=== PATIENT | female | born 1990 | race Caucasian/White ===

== ENCOUNTER → 2016-12-06 | Outpatient (CLI) | payer BC | LOC: MW.CHOBGYN 09:15 | PROVIDERS: ATTEND Nurse Practitioner Women's Health | DX: E03.9 Hypothyroidism, unspecified (principal) | CPT/HCPCS: 36415; 84439; 84443 ==

== ENCOUNTER → 2017-01-03 | Outpatient (CLI) | payer BC | END | disposition home or self-care (01) | LOC: MW.CHOBGYN 09:00 | PROVIDERS: ATTEND Advanced Practice Midwife | DX: Z34.90 Encounter for supervision of normal pregnancy, unspecified, unspecified trimester (principal) | CPT/HCPCS: 87081 ==

== ENCOUNTER → 2017-01-24 | Outpatient (CLI) | payer BC | LOC: MW.CHOBGYN 15:56 | PROVIDERS: ATTEND Obstetrics & Gynecology | DX: Z34.90 Encounter for supervision of normal pregnancy, unspecified, unspecified trimester (principal) | CPT/HCPCS: 81003 ==

== ENCOUNTER 2017-01-31 09:37 | Inpatient (IN) | payer BC ==
[2017-01-31] MEDS ORDERED: Butorphanol 1 MG/ML SDV IVPUSH PRN (10:34)
[2017-01-31] MEDS ORDERED: Carboprost Tromethamine 250 MCG/1 ML Amp IM PRN (10:34)
[2017-01-31] MEDS ORDERED: Misoprostol 200 MCG Tab PO PRN (10:34)
[2017-01-31] MEDS ORDERED: Sodium Chloride 0.9% 2.5 ML Syringe FLUSH PRN (10:34)
[2017-01-31] MEDS ORDERED: Nalbuphine 10 MG/1 ML Vial IVPUSH PRN (10:34)
[2017-01-31] MEDS ORDERED: Methylergonovine 0.2 MG/1 ML Amp IM PRN (10:34)
[2017-01-31] MEDS ORDERED: Lidocaine 1% 50 ML MDV INJECT PRN (10:34)
[2017-01-31] MEDS ORDERED: Sodium Chloride 0.9% 10 ML Syringe FLUSH PRN (10:34)
[2017-01-31] MEDS ORDERED: Water For Irrigation,Sterile 1,000 ML Container IRR PRN (10:34)
[2017-01-31] MEDS ORDERED: Oxytocin/Lactated Ringers 30 UNIT/500 ML BAG IV SCH ×2 (10:45→15:15)
[2017-01-31] MEDS: Lactated Ringers 1,000 ML IV SCH ×3 (13:08→14:35)
--- NOTE | 2017-01-31 13:19 | PCM.LDHP ---
L&D History of Present Illness - General Date of Service: 01/31/17 Admit Problem/Dx: Patient Status Order with Admit Dx/Problem 01/31/17 09:58 Patient Status [ADT] Routine 01/31/17 10:34 Patient Status [ADT] Routine Admission Diagnosis/Problem Admission Diagnosis/Problem Source of Information: Patient History Limitations: Reports: No limitations - History of Present Illness Introduction:: 26 yo EDC 01/31/2017 40 weeks today. Active labor and SROM clear. A+. RI, GBS neg. 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: , Other (see below) Other OB/BYN History: removal of cyst of fallopian tube Endocrine/Metabolic History: Reports: Hypothyroidism, Obesity/BMI 30+ - Past Surgical History GI Surgical History: Reports: Cholecystectomy Social & Family History - Family History OBGYN: Reports: Musculoskeletal: Reports: Fibromyalgia Neurological: Reports: CVA, Parkinson's Psychiatric: Reports: Depression Endocrine/Metabolic: Reports: Hypothyroidism Hematologic: Reports: Other (see below) Other Hematologic Family History: von willebran's Oncologic: Reports: Colon - Tobacco Use Smoking Status *Q: Never Smoker Second Hand Smoke Exposure: No - Alcohol Use Days Per Week of Alcohol Use: 0 - Recreational Drug Use Recreational Drug Use: No H&P Review of Systems - Review of Systems: Review Of Systems: See Below General: Reports: no symptoms HEENT: Reports: no symptoms Pulmonary: Reports: No Symptoms Cardiovascular: Reports: no symptoms Gastrointestinal: Reports: No symptoms Genitourinary: Reports: no symptoms Musculoskeletal: Reports: no symptoms Skin: Reports: no symptoms Psychiatric: Reports: no symptoms Neurological: Reports: No Symptoms Hematologic/Lymphatic: Reports: no symptoms Immunologic: Reports: no symptoms L&D Exam - Exam Exam: See Below - Vital Signs Weight: 108.862 kg - OB Specific Contraction Intensity: Moderate movement: active heart tones: present Heart Rate (FHR) Variability: Moderate (6-25 bmp) Presentation: Vertex Estimated Weight: 3800 - Ronquillo Score Ronquillo Score Cervix Position: Anterior Ronquillo Score Consistency: Soft Ronquillo Score Effacement: >80% Ronquillo Score Dilation: 3-4 cm Ronquillo Score 's Station: -2 Ronquillo Score Total: 10 - Exam General: alert, oriented, cooperative HEENT: Hearing intact Lungs: Clear to auscultation, Normal respiratory effort Cardiovascular: regular rate, regular rhythm, normal S1, normal S2 Abdomen: soft (gravid) Rectal Exam: Deferred Genitourinary: Normal bimanual exam, Cervical fluid Back Exam: full range of motion Extremities: normal inspection Skin: warm, dry, intact Neurological: cranial nerves intact Psychiatric: alert, normal affect, normal mood - Patient Data Lab Results last 24 hrs: Laboratory Results - last 24 hr 01/31/17 01/31/17 01/31/17 Range/Units 09:50 11:01 11:01 WBC 15.06 H (4.0-11.0) K/uL RBC 4.30 (4.30-5.90) M/uL Hgb 11.7 L (12.0-16.0) g/dL Hct 35.8 L (36.0-46.0) % MCV 83.3 (80.0-98.0) fL MCH 27.2 (27.0-32.0) pg MCHC 32.7 (31.0-37.0) g/dL RDW Std Deviation 42.9 (28.0-62.0) fl RDW Coeff of Pro 14 (11.0-15.0) % Plt Count 266 (150-400) K/uL MPV 9.60 (7.40-12.00) fL Nucleated RBC % 0.0 /100WBC Nucleated RBCs # 0 K/uL Membrane Rupture POSITIVE Blood Type A POSITIVE Antibody Screen NEGATIVE Result Diagrams: 01/31/17 11:01 - Problem List (1) Supervision of normal IUP (intrauterine ) in primigravida SNOMED Code(s): 18074681, 399707562, 760345259, 221579544 ICD Code: Z34.00 - ENCNTR FOR SUPRVSN OF NORMAL FIRST , UNSP TRIMESTER Status: Acute Current Visit: Yes Qualifiers: Trimester: third trimester Qualified Code(s): Z34.03 - Encounter for supervision of normal first , third trimester Problem List Initiated/Reviewed/Updated: Yes Orders Last 24hrs: Active Orders 24 hr Category Date Time Status Patient Status [ADT] Routine ADT 01/31/17 10:34 Active Heart Tones [RC] CONTINUOUS Care 01/31/17 10:34 Active Non Stress Test [RC] PER UNIT ROUTINE Care 01/31/17 09:58 Active Non Stress Test [RC] PER UNIT ROUTINE Care 01/31/17 10:34 Active May Shower [RC] ASDIRECTED Care 01/31/17 10:34 Active Notify Provider [RC] PRN Care 01/31/17 10:34 Active Up ad Nilsa [RC] ASDIRECTED Care 01/31/17 09:58 Active Up ad Nilsa [RC] ASDIRECTED Care 01/31/17 10:34 Active Vaginal Exam [RC] Click To Edit Care 01/31/17 09:58 Active Vaginal Exam [RC] PRN Care 01/31/17 10:34 Active Vital Signs [RC] PER UNIT ROUTINE Care 01/31/17 09:58 Active Vital Signs [RC] PER UNIT ROUTINE Care 01/31/17 10:34 Active Clear Liquid Diet [DIET] Diet 01/31/17 Lunch Active Butorphanol [Stadol] Med 01/31/17 10:34 Active 1 mg IVPUSH Q1H PRN Carboprost Tromethamine [Hemabate DS] Med 01/31/17 10:34 Active 250 mcg IM ASDIRECTED PRN Lactated Ringers [Ringers, Lactated] 1,000 ml Med 01/31/17 10:45 Active IV ASDIRECTED Lidocaine 1% [Xylocaine 1%] Med 01/31/17 10:34 Active 50 ml INJECT .ONCE PRN Methylergonovine [Methergine] Med 01/31/17 10:34 Active 0.2 mg IM ASDIRECTED PRN Misoprostol [Cytotec] Med 01/31/17 10:34 Active 200 mcg PO .ONCE PRN Oxytocin/Lactated Ringers [Pitocin in LR 30 Units/500 Med 01/31/17 10:45 Active ML] 30 unit in 500 ml IV TITRATE Sodium Chloride 0.9% [Saline Flush] Med 01/31/17 10:34 Active 10 ml FLUSH ASDIRECTED PRN Sodium Chloride 0.9% [Saline Flush] Med 01/31/17 10:34 Active 2.5 ml FLUSH ASDIRECTED PRN Water For Irrigation,Sterile [Sterile Water for Med 01/31/17 10:34 Active Irrigation] 1,000 ml IRR ASDIRECTED PRN Scalp Electrode [WOMSER] Per Unit Routine Oth 01/31/17 10:34 Ordered Peripheral IV Insertion Adult [OM.PC] Routine Oth 01/31/17 10:34 Ordered Resuscitation Status Routine Resus Stat 01/31/17 09:58 Ordered Medication Orders Butorphanol Tartrate (Stadol) 1 mg IVPUSH Q1H PRN PRN Reason: Pain Carboprost Tromethamine (Hemabate Ds) 250 mcg IM ASDIRECTED PRN PRN Reason: Post Hemorrhage Lactated Ringer's (Ringers, Lactated) 1,000 mls @ 150 mls/hr IV ASDIRECTED KATHY Last Admin: 01/31/17 13:08 Dose: 150 mls/hr Oxytocin/Lactated Ringer's (Pitocin In Lr 30 Units/500 Ml) 30 unit in 500 mls @ 2 mls/hr IV TITRATE KATHY; 2 MUNITS/MIN PRN Reason: Protocol Stop: 02/01/17 10:44 Lidocaine HCl (Xylocaine 1%) 50 ml INJECT .ONCE PRN PRN Reason: Laceration repair Methylergonovine Maleate (Methergine) 0.2 mg IM ASDIRECTED PRN PRN Reason: Post Hemorrhage Misoprostol (Cytotec) 200 mcg PO .ONCE PRN PRN Reason: Post Hemorrhage Sodium Chloride (Saline Flush) 10 ml FLUSH ASDIRECTED PRN PRN Reason: Keep Vein Open Sodium Chloride (Saline Flush) 2.5 ml FLUSH ASDIRECTED PRN PRN Reason: Keep Vein Open Sterile Water (Sterile Water For Irrigation) 1,000 ml IRR ASDIRECTED PRN PRN Reason: delivery Assessment/Plan Comment:: Labor A: 26 yo EDC 01/31/2017 40 weeks today. Active labor and SROM clear. A+. RI , GBS neg. P: Admitted to L&D, epidural prn, anticipate .
--- NOTE | 2017-01-31 13:29 | PCM.PREANE ---
Preanesthetic Assessment - Anesthesia/Transfusion/Family Hx Anesthesia History: Prior Anesthesia Without Reaction Transfusion History: No Prior Transfusion(s) - Review of Systems General: No Symptoms Pulmonary: No Symptoms Cardiovascular: No Symptoms Gastrointestinal: No symptoms Neurological: No Symptoms Other: Reports: None - Physical Assessment Height: 5 ft 6 in Weight: 108.862 kg ASA Class: 2 Mental Status: Alert & Oriented x3 Airway Class: Mallampati = 2 Dentition: Reports: Normal Dentition Thyro-Mental Finger Breadths: 3 Mouth Opening Finger Breadths: 3 ROM/Head Extension: Full Lungs: Clear to auscultation, Normal respiratory effort Cardiovascular: Regular Rate, Regular Rhythm - Lab Values: Laboratory Last Values WBC 15.06 K/uL (4.0-11.0) H 01/31/17 11:01 RBC 4.30 M/uL (4.30-5.90) 01/31/17 11:01 Hgb 11.7 g/dL (12.0-16.0) L 01/31/17 11:01 Hct 35.8 % (36.0-46.0) L 01/31/17 11:01 MCV 83.3 fL (80.0-98.0) 01/31/17 11:01 MCH 27.2 pg (27.0-32.0) 01/31/17 11:01 MCHC 32.7 g/dL (31.0-37.0) 01/31/17 11:01 RDW Std Deviation 42.9 fl (28.0-62.0) 01/31/17 11:01 RDW Coeff of Pro 14 % (11.0-15.0) 01/31/17 11:01 Plt Count 266 K/uL (150-400) 01/31/17 11:01 MPV 9.60 fL (7.40-12.00) 01/31/17 11:01 Nucleated RBC % 0.0 /100WBC 01/31/17 11:01 Nucleated RBCs # 0 K/uL 01/31/17 11:01 Membrane Rupture POSITIVE 01/31/17 09:50 Blood Type A POSITIVE 01/31/17 11:01 Antibody Screen NEGATIVE 01/31/17 11:01 - Allergies Allergies/Adverse Reactions: Allergies Allergy/AdvReac Type Severity Reaction Status Date / Time aloe Allergy Rash Verified 01/31/17 10:03 - Acknowledgements Anesthesia Type Planned: Epidural Pt an Appropriate Candidate for the Planned Anesthesia: Yes Alternatives and Risks of Anesthesia Discussed w Pt/Guardian: Yes Pt/Guardian Understands and Agrees with Anesthesia Plan: Yes PreAnesthesia Questionnaire HEENT History: Reports: None Cardiovascular History: Reports: None Respiratory History: Reports: None Gastrointestinal History: Reports: GERD Genitourinary History: Reports: None 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: , Other (see below) : 1 Para: 0 LMP (Approximate): Other OB/BYN History: removal of cyst of fallopian tube Musculoskeletal History: Reports: None Neurological History: Reports: None Psychiatric History: Reports: None Endocrine/Metabolic History: Reports: Hypothyroidism, Obesity/BMI 30+ Hematologic History: Reports: None Immunologic History: Reports: None Oncologic (Cancer) History: Reports: None Dermatologic History: Reports: None - Infectious Disease History Infectious Disease History: Reports: None - Past Surgical History GI Surgical History: Reports: Cholecystectomy - SUBSTANCE USE Smoking Status *Q: Never Smoker Second Hand Smoke Exposure: No Days Per Week of Alcohol Use: 0 Recreational Drug Use History: No - HOME MEDS Home Medications: Home Meds Levothyroxine [Synthroid] 1 tab PO DAILY 12/20/14 [History] - CURRENT (IN HOUSE) MEDS Current Meds: Current Medications Butorphanol Tartrate (Stadol) 1 mg IVPUSH Q1H PRN PRN Reason: Pain Carboprost Tromethamine (Hemabate Ds) 250 mcg IM ASDIRECTED PRN PRN Reason: Post Hemorrhage Lactated Ringer's (Ringers, Lactated) 1,000 mls @ 150 mls/hr IV ASDIRECTED KATHY Last Admin: 01/31/17 13:08 Dose: 150 mls/hr Oxytocin/Lactated Ringer's (Pitocin In Lr 30 Units/500 Ml) 30 unit in 500 mls @ 2 mls/hr IV TITRATE KATHY; 2 MUNITS/MIN PRN Reason: Protocol Stop: 02/01/17 10:44 Lidocaine HCl (Xylocaine 1%) 50 ml INJECT .ONCE PRN PRN Reason: Laceration repair Methylergonovine Maleate (Methergine) 0.2 mg IM ASDIRECTED PRN PRN Reason: Post Hemorrhage Misoprostol (Cytotec) 200 mcg PO .ONCE PRN PRN Reason: Post Hemorrhage Sodium Chloride (Saline Flush) 10 ml FLUSH ASDIRECTED PRN PRN Reason: Keep Vein Open Sodium Chloride (Saline Flush) 2.5 ml FLUSH ASDIRECTED PRN PRN Reason: Keep Vein Open Sterile Water (Sterile Water For Irrigation) 1,000 ml IRR ASDIRECTED PRN PRN Reason: delivery Discontinued Medications Nalbuphine HCl (Nubain) 10 mg IVPUSH Q1H PRN PRN Reason: Pain (severe 7-10) Stop: 01/31/17 12:35
[2017-01-31] MEDS ORDERED: fentaNYL 100 MCG/2 ML SDV ONE ×2 (13:31→21:51)
[2017-01-31] MEDS ORDERED: Ropivacaine HCl/PF 100 ML ONE (13:31)
[2017-01-31] MEDS ORDERED: Ropivacaine 0.2% 2 MG/ML 20 ML SDV ONE (21:50)
[2017-01-31] MEDS ORDERED: oxyCODONE 5 MG Tab PO PRN (22:13)
[2017-01-31] MEDS ORDERED: Witch Hazel Medicated Pads 40/Jar TOP PRN (22:13)
[2017-01-31] MEDS ORDERED: Bisacodyl 10 MG Supp RECTAL PRN (22:13)
[2017-01-31] MEDS ORDERED: Ibuprofen 400 MG Tab PO PRN (22:13)
[2017-01-31] MEDS ORDERED: Lanolin 100% Cream 7 GM Tube TOP PRN (22:13)
[2017-01-31] MEDS ORDERED: Acetaminophen 500 MG Tab PO PRN ×2 (22:13)
[2017-01-31] MEDS ORDERED: Benzocaine/Menthol 20%-0.5% Spray 78 GM Cannister TOP PRN (22:13)
--- NOTE | 2017-01-31 23:56 | PCM48HPAN ---
Post Anesthesia Note - EVALUATION WITHIN 48HRS OF ANESTHETIC Vital Signs in Normal Range: Yes Patient Participated in Evaluation: Yes Respiratory Function Stable: Yes Airway Patent: Yes Cardiovascular Function Stable: Yes Hydration Status Stable: Yes Pain Control Satisfactory: Yes Nausea and Vomiting Control Satisfactory: Yes Mental Status Recovered: Yes
--- NOTE | 2017-02-01 00:33 | OR ---
SURGEON: Guicho Miramontes MD DATE OF PROCEDURE: DELIVERY NOTE: Ms. Ronquillo is a 26-year-old female. She is primigravida. She is term. She is followed in our clinic primarily by our nurse circulation tender, Ilya. She is admitted early today in active labor. At the time of admission, she was 6 cm, had complete vertex with bulging bag of water. The patient has had regular contraction. She had artificial rupture of the membrane with very clear fluid. She had epidural anesthesia for labor analgesia. However, her labor slowed down later on. She required Pitocin augmentation to restart her labor. She became complete and pushed in excess of 2 hours. I was consulted for evaluation, and when I came to evaluate the patient, the patient was vertex in an OA position. She was in the +2 position with head clearly visible through the introitus. The patient was exhausted. She was unable to push farther. On assessment by me, she was in OA position. My estimated weight is about 8 pounds and after consulting with the patient, we elected to do a vacuum extraction. Kiwi vacuum extraction was used, and with one pull the fetus was delivered without any problem, and then there was one nuchal cord. The baby cried immediately and score reported to be 8 and 9. The weight is not available at this time. The placenta was delivered spontaneous, complete, and intact. There was first- degree perineal laceration that was repaired with 3-0 Vicryl in layer without any problem. The estimated blood loss is 350 mL. heart rate was category 1 through the entire process of labor. There was no complication in the labor or in the . KJ / NUVIA /[id number]
[2017-02-01] MEDS: Ibuprofen 800 MG Tab PO PRN ×3 (01:58→19:50)
[2017-02-01] MEDS: Docusate Sodium 100 MG Cap PO PRN (07:39)
--- NOTE | 2017-02-01 08:28 | PCM.PNPP ---
- General Info Date of Service: 02/01/17 Admission Dx/Problem (Free Text): Patient Status Order with Admit Dx/Problem 01/31/17 09:58 Patient Status [ADT] Routine 01/31/17 10:34 Patient Status [ADT] Routine Admission Diagnosis/Problem Admission Diagnosis/Problem Functional Status: Reports: pain controlled, tolerating diet, ambulating, urinating - Review of Systems General: Reports: No Symptoms HEENT: Reports: no symptoms Pulmonary: Reports: no symptoms Cardiovascular: Reports: No Symptoms Gastrointestinal: Reports: No symptoms Genitourinary: Reports: no symptoms Musculoskeletal: Reports: no symptoms Skin: Reports: no symptoms Neurological: Reports: No Symptoms Psychiatric: Reports: no symptoms - General Info Date of Service: 02/01/17 - Patient Data Weight - most recent: 108.862 kg Lab Results - last 24 hrs: Laboratory Results - last 24 hr 01/31/17 01/31/17 01/31/17 Range/Units 09:50 11:01 11:01 WBC 15.06 H (4.0-11.0) K/uL RBC 4.30 (4.30-5.90) M/uL Hgb 11.7 L (12.0-16.0) g/dL Hct 35.8 L (36.0-46.0) % MCV 83.3 (80.0-98.0) fL MCH 27.2 (27.0-32.0) pg MCHC 32.7 (31.0-37.0) g/dL RDW Std Deviation 42.9 (28.0-62.0) fl RDW Coeff of Pro 14 (11.0-15.0) % Plt Count 266 (150-400) K/uL MPV 9.60 (7.40-12.00) fL Nucleated RBC % 0.0 /100WBC Nucleated RBCs # 0 K/uL Membrane Rupture POSITIVE Blood Type A POSITIVE Antibody Screen NEGATIVE Med Orders - Current: Current Medications Acetaminophen (Tylenol Extra Strength) 500 mg PO Q4H PRN PRN Reason: Pain Acetaminophen (Tylenol Extra Strength) 1,000 mg PO Q4H PRN PRN Reason: Pain Benzocaine/Menthol (Dermoplast Pain Relief 20%-0.5% [place]) 0 gm TOP ASDIRECTED PRN PRN Reason: Perineal Comfort Measure Last Admin: 04/25/17 01:58 Dose: 1 can Bisacodyl (Dulcolax) 10 mg RECTAL .ONCE PRN PRN Reason: Constipation Docusate Sodium (Colace) 100 mg PO BID PRN PRN Reason: Constipation Last Admin: 02/01/17 07:39 Dose: 100 mg Emollient Ointment (Lansinoh Hpa) 0 gm TOP ASDIRECTED PRN PRN Reason: Sore Nipples Last Admin: 02/01/17 01:58 Dose: 1 tube Ibuprofen (Motrin) 400 mg PO Q4H PRN PRN Reason: Pain Ibuprofen (Motrin) 800 mg PO Q6H PRN PRN Reason: Pain Last Admin: 02/01/17 01:58 Dose: 800 mg Oxycodone HCl (Oxycodone) 5 mg PO Q2H PRN PRN Reason: Pain Witch Luh (Tucks) 1 pad TOP ASDIRECTED PRN PRN Reason: comfort care Last Admin: 02/01/17 01:59 Dose: 1 tub Discontinued Medications Butorphanol Tartrate (Stadol) 1 mg IVPUSH Q1H PRN PRN Reason: Pain Carboprost Tromethamine (Hemabate Ds) 250 mcg IM ASDIRECTED PRN PRN Reason: Post Hemorrhage Fentanyl (Sublimaze) Confirm Administered Dose 100 mcg .ROUTE .STK-MED ONE Stop: 01/31/17 13:32 Last Admin: 01/31/17 15:01 Dose: Not Given Fentanyl (Sublimaze) Confirm Administered Dose 100 mcg .ROUTE .STK-MED ONE Stop: 01/31/17 21:52 Last Admin: 02/01/17 02:16 Dose: Not Given Lactated Ringer's (Ringers, Lactated) 1,000 mls @ 150 mls/hr IV ASDIRECTED KATHY Last Admin: 01/31/17 14:35 Dose: 150 mls/hr Oxytocin/Lactated Ringer's (Pitocin In Lr 30 Units/500 Ml) 30 unit in 500 mls @ 2 mls/hr IV TITRATE KATHY; 2 MUNITS/MIN PRN Reason: Protocol Stop: 02/01/17 10:44 Last Admin: 02/01/17 02:16 Dose: Not Given Ropivacaine (Naropin 0.2%) Confirm Administered Dose 100 mls @ as directed .ROUTE .STK-MED ONE Stop: 01/31/17 13:32 Last Admin: 01/31/17 15:01 Dose: Not Given Oxytocin/Lactated Ringer's (Pitocin In Lr 30 Units/500 Ml) 30 unit in 500 mls @ 2 mls/hr IV TITRATE KATHY; 2 MUNITS/MIN PRN Reason: Protocol Last Titration: 01/31/17 18:30 Dose: 8 munits/min, 8 mls/hr Lidocaine HCl (Xylocaine 1%) 50 ml INJECT .ONCE PRN PRN Reason: Laceration repair Methylergonovine Maleate (Methergine) 0.2 mg IM ASDIRECTED PRN PRN Reason: Post Hemorrhage Misoprostol (Cytotec) 200 mcg PO .ONCE PRN PRN Reason: Post Hemorrhage Nalbuphine HCl (Nubain) 10 mg IVPUSH Q1H PRN PRN Reason: Pain (severe 7-10) Stop: 01/31/17 12:35 Ropivacaine (Naropin 0.2%) Confirm Administered Dose 20 ml .ROUTE .STK-MED ONE Stop: 01/31/17 21:51 Last Admin: 02/01/17 02:16 Dose: Not Given Sodium Chloride (Saline Flush) 10 ml FLUSH ASDIRECTED PRN PRN Reason: Keep Vein Open Sodium Chloride (Saline Flush) 2.5 ml FLUSH ASDIRECTED PRN PRN Reason: Keep Vein Open Sterile Water (Sterile Water For Irrigation) 1,000 ml IRR ASDIRECTED PRN PRN Reason: delivery - Interaction Infant Disposition, : Ob[place] in Room with Family Infant Interaction: Other (see below) (Peds in room for exam) Feeding: Attempted ; Nursed Fair/Poor Support Person: - Recovery Exam Fundal Tone: Firm Fundal Level: 1 Fingerbreadths Below Umbilicus Fundal Placement: Midline Lochia Amount: Scant Lochia Color: Rubra/Red Perineum Description: Edematous, Other (see below) Other Perinuem Description: 2nd degree lac with repair Episiotomy/Laceration: Approximated Bladder Status: Voiding - Exam General: alert, oriented, cooperative, no acute distress Lungs: Normal respiratory effort Abdomen: soft, no tenderness, no distension Extremities: no edema Skin: warm, dry, intact Wound/Incisions: healing well Neurological: no new focal deficit Psy/Mental Status: alert, normal affect, normal mood - Problem List & Annotations (1) Supervision of normal IUP (intrauterine ) in primigravida SNOMED Code(s): 76929834, 063495654, 138153579, 353950909 Code(s): Z34.00 - ENCNTR FOR SUPRVSN OF NORMAL FIRST , UNSP TRIMESTER Status: Acute Current Visit: Yes Qualifiers: Trimester: third trimester Qualified Code(s): Z34.03 - Encounter for supervision of normal first , third trimester (2) Vacuum extractor delivery, delivered SNOMED Code(s): 154470399 Code(s): O66.5 - ATTEMPTED APPLICATION OF VACUUM EXTRACTOR AND FORCEPS Status: Acute Priority: Medium Current Visit: Yes - Problem List Review Problem List Initiated/Reviewed/Updated: Yes - My Orders Last 24 Hours: My Active Orders 01/31/17 10:34 Heart Tones [RC] CONTINUOUS Non Stress Test [RC] PER UNIT ROUTINE May Shower [RC] ASDIRECTED Notify Provider [RC] PRN Up ad Nilsa [RC] ASDIRECTED Vaginal Exam [RC] PRN Vital Signs [RC] PER UNIT ROUTINE 01/31/17 22:13 May Shower [RC] ASDIRECTED Up ad Nilsa [RC] ASDIRECTED Vital Signs [RC] PER UNIT ROUTINE Acetaminophen [Tylenol Extra Strength] 1,000 mg PO Q4H PRN Acetaminophen [Tylenol Extra Strength] 500 mg PO Q4H PRN Benzocaine/Menthol [Dermoplast Pain Relief 20%-0.5% [place]] 0 gm TOP ASDIRECTED PRN Bisacodyl [Dulcolax] 10 mg RECTAL .ONCE PRN Docusate Sodium [Colace] 100 mg PO BID PRN Ibuprofen [Motrin] 400 mg PO Q4H PRN Ibuprofen [Motrin] 800 mg PO Q6H PRN Lanolin [Lansinoh HPA] See Dose Instructions TOP ASDIRECTED PRN Witch Luh [Tucks] 1 pad TOP ASDIRECTED PRN oxyCODONE 5 mg PO Q2H PRN Assess Lochia [WOMSER] Per Unit Routine Assess Uterine Involution [WOMSER] Per Unit Routine Peripheral IV Discontinue [OM.PC] Routine Resuscitation Status Routine 01/31/17 22:14 Patient Status [ADT] Routine - Assessment Assessment:: Term OVD with 2nd degree lac with repair. Stable - Plan Plan:: Labor A: 26 yo EDC 01/31/2017 40 weeks today. Active labor and SROM clear. A+. RI , GBS neg. P: Admitted to L&D, epidural prn, anticipate . Post day 1 continue pp plan of care. D/C home tomorrow if pt and infant stable
[2017-02-02] MEDS: Ibuprofen 800 MG Tab PO PRN ×2 (01:49→07:50)
[2017-02-02] MEDS: Docusate Sodium 100 MG Cap PO PRN (07:49)
[2017-02-02 08:57] VITALS: BP 118/70
--- NOTE | 2017-02-02 10:17 | PCM.DCSUM1 ---
Discharge Summary - Hospital Course Free Text/Narrative:: Discharge home. Follow up 6 weeks or sooner if needed - Discharge Data Discharge Date: 02/02/17 Discharge Disposition: Home, Self-Care 01 Condition: Good - Discharge Diagnosis/Problem(s) (1) Supervision of normal IUP (intrauterine ) in primigravida SNOMED Code(s): 05539822, 819895154, 782231369, 583850399 ICD Code: Z34.00 - ENCNTR FOR SUPRVSN OF NORMAL FIRST , UNSP TRIMESTER Status: Acute Current Visit: Yes Qualifiers: Trimester: third trimester Qualified Code(s): Z34.03 - Encounter for supervision of normal first , third trimester (2) Vacuum extractor delivery, delivered SNOMED Code(s): 259169372 ICD Code: O66.5 - ATTEMPTED APPLICATION OF VACUUM EXTRACTOR AND FORCEPS Status: Acute Priority: Medium Current Visit: Yes - Patient Instructions Diet: Usual Diet as Tolerated Activity: As Tolerated, Rest and Relax Today Driving: Do Not Drive Showering/Bathing: May Shower Notify Provider of: Fever, Increased Pain, Swelling and Redness, Nausea and/or Vomiting - Discharge Plan Home Medications: Home Meds Levothyroxine [Synthroid] 1 tab PO DAILY 12/20/14 [History] Referrals: [facility] [Outside] Annita Caraballo CNM [Mid-] - 03/14/17 10:45 am - General Info Date of Service: 02/02/17 Functional Status: Reports: pain controlled, tolerating diet, ambulating, urinating - Review of Systems General: Reports: No Symptoms HEENT: Reports: no symptoms Pulmonary: Reports: no symptoms Cardiovascular: Reports: No Symptoms Gastrointestinal: Reports: No symptoms Genitourinary: Reports: no symptoms Musculoskeletal: Reports: no symptoms Skin: Reports: no symptoms Neurological: Reports: No Symptoms Psychiatric: Reports: no symptoms - Patient Data Vitals - Most Recent: Last Vital Signs Temp 36.5 C 02/02/17 07:50 Pulse 78 02/02/17 07:50 Resp 16 02/02/17 07:50 BP 118/70 02/02/17 07:50 Pulse Ox 99 02/02/17 07:50 Weight - Most Recent: 108.862 kg Med Orders - Current: Current Medications Acetaminophen (Tylenol Extra Strength) 500 mg PO Q4H PRN PRN Reason: Pain Acetaminophen (Tylenol Extra Strength) 1,000 mg PO Q4H PRN PRN Reason: Pain Last Admin: 02/02/17 07:51 Dose: 1,000 mg Benzocaine/Menthol (Dermoplast Pain Relief 20%-0.5% [place]) 0 gm TOP ASDIRECTED PRN PRN Reason: Perineal Comfort Measure Last Admin: 02/01/17 01:58 Dose: 1 can Bisacodyl (Dulcolax) 10 mg RECTAL .ONCE PRN PRN Reason: Constipation Docusate Sodium (Colace) 100 mg PO BID PRN PRN Reason: Constipation Last Admin: 02/02/17 07:49 Dose: 100 mg Emollient Ointment (Lansinoh Hpa) 0 gm TOP ASDIRECTED PRN PRN Reason: Sore Nipples Last Admin: 02/01/17 01:58 Dose: 1 tube Ibuprofen (Motrin) 400 mg PO Q4H PRN PRN Reason: Pain Ibuprofen (Motrin) 800 mg PO Q6H PRN PRN Reason: Pain Last Admin: 02/02/17 07:50 Dose: 800 mg Oxycodone HCl (Oxycodone) 5 mg PO Q2H PRN PRN Reason: Pain Witch Luh (Tucks) 1 pad TOP ASDIRECTED PRN PRN Reason: comfort care Last Admin: 02/01/17 01:59 Dose: 1 tub Discontinued Medications Butorphanol Tartrate (Stadol) 1 mg IVPUSH Q1H PRN PRN Reason: Pain Carboprost Tromethamine (Hemabate Ds) 250 mcg IM ASDIRECTED PRN PRN Reason: Post Hemorrhage Fentanyl (Sublimaze) Confirm Administered Dose 100 mcg .ROUTE .STK-MED ONE Stop: 01/31/17 13:32 Last Admin: 01/31/17 15:01 Dose: Not Given Fentanyl (Sublimaze) Confirm Administered Dose 100 mcg .ROUTE .STK-MED ONE Stop: 01/31/17 21:52 Last Admin: 02/01/17 02:16 Dose: Not Given Lactated Ringer's (Ringers, Lactated) 1,000 mls @ 150 mls/hr IV ASDIRECTED KATHY Last Admin: 01/31/17 14:35 Dose: 150 mls/hr Oxytocin/Lactated Ringer's (Pitocin In Lr 30 Units/500 Ml) 30 unit in 500 mls @ 2 mls/hr IV TITRATE KATHY; 2 MUNITS/MIN PRN Reason: Protocol Stop: 02/01/17 10:44 Last Admin: 02/01/17 02:16 Dose: Not Given Ropivacaine (Naropin 0.2%) Confirm Administered Dose 100 mls @ as directed .ROUTE .Trigence ONE Stop: 01/31/17 13:32 Last Admin: 01/31/17 15:01 Dose: Not Given Oxytocin/Lactated Ringer's (Pitocin In Lr 30 Units/500 Ml) 30 unit in 500 mls @ 2 mls/hr IV TITRATE KATHY; 2 MUNITS/MIN PRN Reason: Protocol Last Titration: 01/31/17 18:30 Dose: 8 munits/min, 8 mls/hr Lidocaine HCl (Xylocaine 1%) 50 ml INJECT .ONCE PRN PRN Reason: Laceration repair Methylergonovine Maleate (Methergine) 0.2 mg IM ASDIRECTED PRN PRN Reason: Post Hemorrhage Misoprostol (Cytotec) 200 mcg PO .ONCE PRN PRN Reason: Post Hemorrhage Nalbuphine HCl (Nubain) 10 mg IVPUSH Q1H PRN PRN Reason: Pain (severe 7-10) Stop: 01/31/17 12:35 Ropivacaine (Naropin 0.2%) Confirm Administered Dose 20 ml .ROUTE .Trigence ONE Stop: 01/31/17 21:51 Last Admin: 02/01/17 02:16 Dose: Not Given Sodium Chloride (Saline Flush) 10 ml FLUSH ASDIRECTED PRN PRN Reason: Keep Vein Open Sodium Chloride (Saline Flush) 2.5 ml FLUSH ASDIRECTED PRN PRN Reason: Keep Vein Open Sterile Water (Sterile Water For Irrigation) 1,000 ml IRR ASDIRECTED PRN PRN Reason: delivery - Exam General: Reports: alert, oriented, cooperative, no acute distress Lungs: Reports: Normal respiratory effort Abdomen: Reports: soft, no tenderness, no distension (Female) Exam: Vaginal bleeding Rectal (Female) Exam: Deferred Back Exam: Reports: full range of motion Extremities: Reports: no edema, normal pulses Skin: Reports: warm, dry, intact Wound/Incisions: Reports: healing well Neurological: Reports: no new focal deficit Psy/Mental Status: Reports: alert, normal affect, normal mood *Q Meaningful Use (DIS) - VTE *Q VTE Criteria *Q: - Stroke *Q Stroke Criteria *Q: - AMI *Q AMI Criteria *Q:
== END 2017-02-02 13:25 | disposition home or self-care (01) | DRG 560 ==
LOC: MW.OBCHECK 09:37 → MW.OB 09:41 → MW.OBCHECK 12:47 → MW.OB 12:47 → OBSVTOIN 22:06 → MW.OB 02-01 02:00
PROVIDERS: ADMIT Obstetrics & Gynecology; ATTEND Obstetrics & Gynecology
PROC: 10907ZC Drainage of Amniotic Fluid, Therapeutic from Products of Conception, Via Natural or Artificial Opening (ICD-10-PCS; principal; 2017-01-31)
PROC: 0HQ9XZZ Repair Perineum Skin, External Approach (ICD-10-PCS; 2017-01-31)
PROC: 10D07Z6 Extraction of Products of Conception, Vacuum, Via Natural or Artificial Opening (ICD-10-PCS; 2017-01-31)
DX: O70.0 First degree perineal laceration during delivery (principal); Z3A.40 40 weeks gestation of pregnancy; Z37.0 Single live birth
CPT/HCPCS: 01967; 36415; 51703; 59025; 84112; 85027; 86850; 86900; 86901; A9270-GY; J7120

== ENCOUNTER → 2017-02-25 | Outpatient (CLI) | payer BC | LOC: MW.CHOBGYN 11:46 | PROVIDERS: ATTEND Advanced Practice Midwife | DX: E03.9 Hypothyroidism, unspecified (principal) | CPT/HCPCS: 36415; 84439; 84443 ==

== ENCOUNTER 2023-06-05 18:13 | Emergency (ER) | payer BC ==
[2023-06-05] MEDS ORDERED: Sodium Chloride 0.9% 2.5 ML Syringe FLUSH PRN (19:51)
[2023-06-05] MEDS ORDERED: Sodium Chloride 0.9% 10 ML Syringe FLUSH PRN (19:51)
[2023-06-05 20:22] LABS: BASOPHILS PERCENT AUTO 0.2 % (0.0-1.5); EOSINOPHILS ABSOLUTE AUTO 0.1 K/uL (0.0-0.7); HEMATOCRIT 39.4 % (36.0-46.0); HEMOGLOBIN 13.4 g/dL (12.0-16.0); LYMPHOCYTES ABSOLUTE AUTO 1.8 K/uL (0.6-2.4); LYMPHOCYTES PERCENT AUTO 21.4 % (16.0-40.0); MEAN CORPUSCULAR HEMOGLOBIN 29.6 pg (27.0-32.0); MONOCYTES ABSOLUTE AUTO 0.6 K/uL (0.0-0.8); MONOCYTES PERCENT AUTO 6.7 % (0.0-15.0); NEUTROPHILS ABSOLUTE AUTO 5.9 K/uL (1.4-5.7); NEUTROPHILS PERCENT AUTO 70.7 % (48.0-80.0); NRBC ABSOLUTE 0 K/uL; PLATELET COUNT,PLT 262 K/uL (150-400); RED BLOOD CELL COUNT 4.53 M/uL (4.30-5.90); WHITE BLOOD CELL COUNT,WBC 8.38 K/uL (4.0-11.0)
[2023-06-05 20:31] LABS: APPEARANCE,URINE CLEAR; BILIRUBIN,URINE NEGATIVE (NEGATIVE); GLUCOSE,URINE NEGATIVE (NEGATIVE); KETONES,URINE TRACE mg/dL (NEGATIVE); LEUKOCYTE ESTERASE,URINE TRACE (NEGATIVE); NITRITE,URINE POSITIVE (NEGATIVE); OCCULT BLOOD,URINE LARGE (NEGATIVE); PH,URINE 6.5 (5.0-8.0); PROTEIN,URINE >=300 mg/dL (NEGATIVE)
[2023-06-05 20:33] LABS: COLOR,URINE RED
[2023-06-05 20:34] LABS: BACTERIA,URINE RARE (NEGATIVE); EPITHELIAL CELLS,URINE RARE (NONE-FEW); WBC,URINE 0-3 (0-5/HPF)
[2023-06-05 20:58] LABS: A/G RATIO 1.1 (0.9-1.6); ALBUMIN 4.3 g/dL (3.4-5.0); BILIRUBIN TOTAL 0.9 mg/dL (0.2-1.0); CARBON DIOXIDE,CO2 24.8 mmol/L (21.0-32.0); CREATININE 0.7 mg/dL (0.6-1.0); EST CRCL DRUG DOSING (CG) 107.01 mL/min; POTASSIUM,K 3.7 mmol/L (3.5-5.1); PROTEIN TOTAL,TP 8.1 g/dL (6.4-8.2)
[2023-06-05 22:13] VITALS: BP 123/83; PULSE 69
== END 2023-06-05 22:20 | disposition home or self-care (01) ==
LOC: MW.ED 18:13
DX: O20.0 Threatened abortion (principal); O13.1 Gestational [pregnancy-induced] hypertension without significant proteinuria, first trimester; O99.281 Endocrine, nutritional and metabolic diseases complicating pregnancy, first trimester; E03.9 Hypothyroidism, unspecified; O99.211 Obesity complicating pregnancy, first trimester; Z91.048 Other nonmedicinal substance allergy status; Z79.899 Other long term (current) drug therapy; Z3A.10 10 weeks gestation of pregnancy
CPT/HCPCS: 36415; 76817; 76817-26; 80053; 81001; 81025; 84702; 85025; 86900; 86901; 99283; 99284